=== PATIENT | female | born 1990 | race Caucasian/White ===

== ENCOUNTER → 2021-02-12 07:54 | Outpatient (CLI) | payer OTHER, SELFPAY ==
--- NOTE | 2021-02-12 07:57 | DI.US.S_ITS ---
PROCEDURE: US OB <= 14 WEEKS FETUS INDICATIONS: DATING OUTSIDE/PRIOR DATING DATA: Last menstrual period (LMP): Unknown. LMP-based estimated date of delivery (KATHY): Unknown. First dating scan (date and location): 02/13/2020. Estimated date of delivery (KATHY) from first dating scan: 09/19/2021. TECHNIQUE: Real-time scanning was performed of the fetus and maternal pelvic organs, with image documentation. Endovaginal scanning was also performed to better visualize the fetus and maternal ovaries. COMPARISON: None. FINDINGS: Embryo: Single intrauterine gestational sac containing pole and yolk sac P. pole measures 2.1 cm corresponding with an 8 week 5 day gestation. No perigestational bleed. Heart rate: 171 Measurement variability in dating: +/- 4 weeks by LMP, +/- 7 days by mean sac diameter (use before 6 weeks gestation if crown-rump length not able to be measured), +/- 5 days by crown-rump length (up to 8 weeks 6 days gestation), +/- 7 days by crown-rump length (up to 13 weeks 6 days gestation). Maternal organs: Both ovaries have appropriate vascularity without torsion. 1.5 cm corpus luteum cyst noted on the right. IMPRESSION: Single live intrauterine corresponds with a 8 week 5 day gestation Approved by: Jose F Xiong M.D. on 02/12/2021 at 10:19
== END ==
PROVIDERS: Referring Provider Specialist; Visit Provider Specialist
DX: Z36.87 Encounter for antenatal screening for uncertain dates (principal); O99.281 Endocrine, nutritional and metabolic diseases complicating pregnancy, first trimester; E03.9 Hypothyroidism, unspecified; Z3A.08 8 weeks gestation of pregnancy
CPT/HCPCS: 76801; 76817

== ENCOUNTER → 2021-02-26 17:16 | Outpatient (CLI) | payer OTHER, SELFPAY ==
[2021-02-26 17:47] LABS: Appearance Urine UA CLEAR; Bilirubin Urine UA NEGATIVE (NEGATIVE); Color Urine UA YELLOW; Glucose Urine UA NEGATIVE (Negative); Ketones Urine UA NEGATIVE (NEGATIVE); Leukocyte Esterase Urine UA NEGATIVE (NEGATIVE); Nitrite Urine UA NEGATIVE (Negative); Occult Blood Urine UA NEGATIVE (Negative); Protein Urine UA NEGATIVE (Negative); Urobilinogen Urine UA 0.2 E.U./dL (0.2)
[2021-02-26 17:50] LABS: Add Manual Diff / Slide Review NO; Basophils Absolute Auto 0 /uL (0-100); Basophils Percent Auto 0.5 % (0-2); Eosinophils Absolute Auto 100 /uL (0-450); Eosinophils Percent Auto 0.8 % (2-4); Hematocrit 35.2 % (36-46); Hemoglobin 12.1 g/dL (12.0-16.0); Lymphocytes Absolute Auto 1900 /uL (1100-4500); Lymphocytes Percent Auto 27.2 % (25-40); Mean Corpuscular HGB Conc 34.4 % (30-36); Mean Corpuscular Hemoglobin 32.2 PG (26-34); Mean Corpuscular Volume 93.5 fL (80-100); Monocytes Absolute Auto 500 /uL (0-900); Monocytes Percent Auto 7.4 % (3-14); Neutrophils Absolute Auto 4500 /uL (1500-7000); Neutrophils Percent Auto 64.1 % (50-75); Platelet Count 224 X10^3/uL (150-400); Red Blood Cell Count 3.77 X10^6/uL (4.0-5.2); Red Cell Distribution Width 13.1 % (11.6-14.8)
[2021-02-26 18:24] LABS: Free T4, Direct Thyroxine 1.01 ng/dL (0.78-2.19)
[2021-02-26 18:38] LABS: Thyroid Stimulating Hormone 3.12 uIU/mL (0.47-4.68)
[2021-02-27 06:40] LABS: RPR Screen Non Reactive (Non Reactive)
[2021-02-27 08:10] LABS: Varicella IgG Antibody 975 index (Immune >165)
[2021-02-27 16:19] LABS: Hepatitis B Surface Antigen NEGATIVE s/c (NEGATIVE)
[2021-02-27 16:34] LABS: HIV 1 & 2 Ab/Ag 4th Gen Combo NEGATIVE (NEGATIVE); Hep C Virus Ab w/Reflex Quant NEGATIVE s/c (NEGATIVE)
[2021-03-08 13:42] LABS: Rubella Antibody IgG 14.5 IU/mL (>15)
== END ==
PROVIDERS: Referring Provider Specialist; Visit Provider Specialist
DX: Z34.81 Encounter for supervision of other normal pregnancy, first trimester (principal); E03.9 Hypothyroidism, unspecified
CPT/HCPCS: 36415; 80055; 81003; 84439; 84443; 86787; 86803; 86850; 86900; 86901; 87086; 87389

== ENCOUNTER 2021-03-14 16:36 | Outpatient (CLI) | payer OTHER, SELFPAY ==
[2021-03-14] MEDS: LACTATED RINGERS 1,000 ML 1000 ML IV (17:18)
[2021-03-14] MEDS: ONDANSETRON 4 MG/2 ML INJ IV (17:20)
[2021-03-14 18:47] VITALS: BP 116/74; PULSE 64; RESP 20; TEMP 36.8
== END 2021-03-14 18:40 | disposition home or self-care (01) ==
LOC: OB 03-19 07:11
PROVIDERS: Referring Provider Specialist; Visit Provider Specialist
DX: O21.0 Mild hyperemesis gravidarum (principal); Z3A.13 13 weeks gestation of pregnancy
CPT/HCPCS: 59050; 96360; G0378; G0379; J2405

== ENCOUNTER → 2021-03-26 14:50 | Outpatient (CLI) | payer OTHER, SELFPAY ==
[2021-03-26 20:38] LABS: Urine N gonorrhoeae NOT DETECTED
[2021-03-26 20:42] LABS: Urine Chlamydia NOT DETECTED
== END ==
PROVIDERS: Visit Provider Specialist
DX: Z34.82 Encounter for supervision of other normal pregnancy, second trimester (principal); Z3A.14 14 weeks gestation of pregnancy
CPT/HCPCS: 87491; 87591

== ENCOUNTER → 2021-04-22 13:45 | Outpatient (CLI) | payer OTHER, SELFPAY ==
[2021-04-22 16:15] LABS: Thyroid Stimulating Hormone 1.87 uIU/mL (0.47-4.68)
[2021-04-26 20:22] LABS: AFP, Serum 46.1 ng/mL (.); Estriol, Free 1.73 ng/mL (.); Inhibin A, Dimeric 191.56 pg/mL (.); Inhibin A, MoM 1.23 (.); Maternal Ethnicity Caucasian (.); Maternal Weight 155 lbs (.); Number of Fetuses No (.); OSBR Risk 1 IN 10000 (.); Results Report (.); Test Results *Screen Negative* (.); hCG, MoM 0.82 (.); hCG, Serum 23206 mIU/mL (.)
== END ==
PROVIDERS: Referring Provider Specialist; Visit Provider Specialist
DX: Z34.82 Encounter for supervision of other normal pregnancy, second trimester (principal); Z3A.18 18 weeks gestation of pregnancy; E03.9 Hypothyroidism, unspecified
CPT/HCPCS: 36415; 82105; 82677; 84443; 84702; 86336

== ENCOUNTER → 2021-05-07 12:55 | Outpatient (CLI) | payer OTHER, SELFPAY ==
--- NOTE | 2021-05-07 12:55 | DI.US.S_ITS ---
PROCEDURE: US OB >= 14 WEEKS FETUS INDICATIONS: ANATOMY OUTSIDE/PRIOR DATING DATA: Last menstrual period (LMP): Unknown. LMP-based estimated date of delivery (KATHY): Unknown. First dating scan (date and location): 02/12/2021. Estimated date of delivery (KATHY) from first dating scan: 09/19/2021. The calculations are made using the ultrasound KATHY of 09/19/2021. TECHNIQUE: Real-time scanning was performed of the fetus, with image documentation and biometric measurements. Endovaginal scanning: Not performed COMPARISON: [facility], , US OB >= 14 WEEKS FETUS, 04/22/2021, 13:36. FINDINGS: General: A single living intrauterine gestation is present. Presentation: Breech. Placenta: Placental position is posterior , without previa. There is superior placental cord insertion, approximately 1.2-1.7 cm from the placental edge. Amniotic fluid index: 14.4 cm, normal range is 5-24 cm. heart rate: 153 beats per minute. Maternal cervical canal: 3.9 cm long. Normal lower limit is 2.5 cm. biometrics: Biparietal diameter: 4.8 cm, 20 weeks 4 days Head circumference: 18.2 cm, 20 weeks 4 days Abdominal circumference: 16.8 cm, 21 weeks 6 days Femur length: 3.3 cm, 20 weeks 2 days Clinically estimated gestational age: 20 weeks 5 days Composite gestational age from present scan: 20 weeks 6 days Estimated weight and percentile: 397 g, 65th percentile Anatomic survey: Neuro: Ventricles are non-dilated at less than 10 mm. Cisterna magna is normal at 3-11 mm. Cerebellum is normal in size and morphology. Nuchal skin fold: Normal at less than 6 mm between 14-21 weeks gestational age. Face: Nose and lips, facial profile are normal. Spine: No evidence for spina bifida. Sacral spine not well seen. Heart: 4-chambered heart is present, with normal ventricular outflow tracts. Diaphragm: Diaphragm is intact. Stomach: Left-sided stomach is present. Kidneys: No hydronephrosis. Normal is less than 5 mm in 2nd trimester, less than 7 mm in 3rd trimester. Cord: 3-vessel cord has orthotopic insertion. Bladder: Normal in size. Extremities: All 4 extremities identified. IMPRESSION: 1. Living 2nd trimester uterine . Ultrasound age is 1 day greater than clinical age based on initial ultrasound 2. Sacral spine not well seen. Anatomical survey otherwise unremarkable. Comment: Consider return for limited imaging of the sacral spine. We strive to produce accurate, complete, and clear reports of imaging services. To assist us in improving patient care, this report was composed using standard report templates and voice recognition software. Therefore, it may contain abnormal punctuation, insertions and/or omissions. Occasional wrong-word or sound-alike substitutions may occur. Though we review the report and make efforts to correct it, we do recommend that the report be read carefully in proper context to recognize any text inaccuracies. Dictated by: Alessandro Modi M.D. on 05/07/2021 at 16:24 Approved by: Alessandro Modi M.D. on 05/07/2021 at 16:28
== END ==
PROVIDERS: Referring Provider Specialist; Visit Provider Specialist
DX: Z34.82 Encounter for supervision of other normal pregnancy, second trimester (principal); Z3A.20 20 weeks gestation of pregnancy
CPT/HCPCS: 76811

== ENCOUNTER → 2021-06-13 12:19 | Outpatient (CLI) | payer OTHER, SELFPAY ==
[2021-06-13 15:26] LABS: GTT (PREG) 1 Hour PP 50gm Dose 82 mg/dL (76-139); Hematocrit 31.6 % (36-46)
[2021-06-13 16:05] LABS: Free T4, Direct Thyroxine 0.77 ng/dL (0.78-2.19)
[2021-06-13 16:19] LABS: Thyroid Stimulating Hormone 1.22 uIU/mL (0.47-4.68)
== END ==
PROVIDERS: Referring Provider Specialist; Visit Provider Specialist
DX: E03.9 Hypothyroidism, unspecified; O99.280 Endocrine, nutritional and metabolic diseases complicating pregnancy, unspecified trimester; O26.899 Other specified pregnancy related conditions, unspecified trimester; Z67.91 Unspecified blood type, Rh negative
CPT/HCPCS: 36415; 82950; 84439; 84443; 85014; 85018; 86850

== ENCOUNTER → 2021-08-29 13:53 | Outpatient (CLI) | payer OTHER, SELFPAY ==
[2021-08-29 15:20] LABS: Free T4, Direct Thyroxine 0.67 ng/dL (0.78-2.19)
[2021-08-29 15:34] LABS: Thyroid Stimulating Hormone 0.674 uIU/mL (0.47-4.68)
[2021-08-30 15:18] LABS: Strep Grp B PCR NEG for Grp B Strep
== END ==
PROVIDERS: Referring Provider Specialist; Visit Provider Specialist
DX: E03.9 Hypothyroidism, unspecified (principal); Z3A.36 36 weeks gestation of pregnancy
CPT/HCPCS: 36415; 84439; 84443; 87653

== ENCOUNTER 2021-09-15 05:31 | Inpatient (IN) | payer OTHER, SELFPAY ==
[2021-09-15] MEDS: LACTATED RINGERS 1,000 ML 100 ML IV ×2 (06:00→11:34)
[2021-09-15 06:45] VITALS: BP 123/68
[2021-09-15 07:20] LABS: Add Manual Diff / Slide Review NO; Basophils Absolute Auto 0 /uL (0-100); Basophils Percent Auto 0.2 % (0-2); Eosinophils Absolute Auto 100 /uL (0-450); Eosinophils Percent Auto 0.9 % (2-4); Hematocrit 30.4 % (36-46); Hemoglobin 10.7 g/dL (12.0-16.0); Lymphocytes Absolute Auto 1600 /uL (1100-4500); Lymphocytes Percent Auto 24.2 % (25-40); Mean Corpuscular HGB Conc 35.1 % (30-36); Mean Corpuscular Hemoglobin 34.9 PG (26-34); Mean Corpuscular Volume 99.5 fL (80-100); Monocytes Absolute Auto 600 /uL (0-900); Monocytes Percent Auto 9.1 % (3-14); Neutrophils Absolute Auto 4300 /uL (1500-7000); Neutrophils Percent Auto 65.6 % (50-75); Platelet Count 146 X10^3/uL (150-400); Red Blood Cell Count 3.06 X10^6/uL (4.0-5.2); Red Cell Distribution Width 12.3 % (11.6-14.8); White Blood Cell Count 6.5 X10^3/uL (4.5-11.0)
--- NOTE | 2021-09-15 07:30 | PM.PREOP ---
Pre-operative Note COVID-19 COVID-19 status: Result pending Result date/Date tested (Pos, Neg/Pending): 09/15/21 Criteria for continued procedure: Non-surgical alternatives not available or appropriate per current SOC Interval Note History & Physical reviewed/Exam performed by Physician: Yes Changes to H&P: No
--- NOTE | 2021-09-15 07:31 | PM.OBHP.1 ---
OB HPI Date/Time Date of admission: 09/15/21 Date Patient Seen: 09/15/21 Time Patient Seen: 07:31 History of Present Condition Chief complaint: REPEAT : 3 Para: 1 Estimated Date of Delivery: 09/22/21 Narrative: Janelle Gross is a 30 year old female admitted for repeat section at 39 weeks Indications Operative indications ( section): previous uterine surgery History of Present care: good care, initiated at week # (10), number of visits (11) and pounds weight gain (56) Dating criteria: LMP confirmed by 1st trimester US Ultrasounds: normal mid trimester US Obstetrical complications: none Medical complications: none Preadmission Labs Blood type: A (-) negative -: Antibody screen: negative, GBS status: negative, HBsAG: negative, HIV: negative and RPR/VDLR: negative -: Chlamydia screen: not detected and Gonorrhea screen: not detected -: Rubella: not immune and Varicella: immune HCAB: negative Quad screen: Normal 1 hr GTT: 82 Prior (ies) History: 04/22/2019 40 week gestation 8 lb 14 oz male by section Evaluation Evaluation Baseline heart rate: 125 Variability: Moderate (11-25) monitor accelerations: Present Monitor Decelerations: Absent Category of Tracing: Reactive Status: Category l PFSH Medical History (Updated 09/05/21 @ 13:48 by Rian Cash MD) Abnormal Pap smear of cervix (~2015) Acne Anxiety (~2015) Chronic eczema Depression (~2015) Eczema History of pneumonia as a child Hypothyroidism (~2017) Migraine (~2020) Thyroid nodule (~2016) Surgical History (Updated 09/05/21 @ 13:48 by Rian Cash MD) History of section (~2018) History of removal of skin mole History of tonsillectomy and adenoidectomy (~2012) Outing teeth extracted (~2016) Family History (Updated 02/25/21 @ 21:33 by Veronika Veliz) Mother Scoliosis History of HPV infection H/O total hysterectomy with removal of both tubes and ovaries Arthritis Father No problems noted. Grandmother No problems noted. Grandfather Hypertension Hyperlipidemia Anxiety Skin cancer Grandmother Leukemia Cancer Grandfather Unknown family medical history Social History marital status: number of children: 1 household members: spouse and children lives independently: Yes caregiver/support person: No pets and animals: Yes (2 dogs : safe/aware. ) education level: college ([employer]. ) occupational status: unemployed current occupational exposures/hazards: No pat/mosque: Rastafarian special pat needs: No seatbelt use: always do you feel safe at home: Yes Smoking Status: Never smoker second hand exposure: No alcohol intake: former (Pre-: very rare. ) substance use type: does not use during the past year weight has: remained stable well-balanced diet: about half the time daily servings fruits/ve-4 caffeine: Yes (Coffee some days; aware of limit.) Type(s) of exercise: regular exercise ('calisthenics' 3-4 days/week prior to . Now not feeling great: 1x/week. ) and normal ROM and activity frequency: 1-2 times per week Meds Home Medications and Allergies Home Medications Medication Instructions Recorded Confirmed Type cetirizine 10 mg tablet (Zyrtec) 10 mg PO DAILY PRN 02/19/21 09/12/21 History docusate sodium 100 mg capsule 100 mg PO DAILY 02/19/21 09/12/21 History (Colace) prenat.vits,jeremias,[id number] 1 tab PO DAILY 02/19/21 09/12/21 History metoclopramide HCl 10 mg tablet 10 mg PO Q6H PRN #20 tab 03/03/21 09/12/21 Rx (Reglan) levothyroxine 150 mcg tablet See Rx Instructions .ROUTE 09/08/21 09/12/21 Rx .COMPLEX #90 tab Allergies Allergy/AdvReac Type Severity Reaction Status Date / Time No Known Drug Allergies Allergy Verified 09/12/21 15:19 Review of Systems Review of Systems Narrative: patient denies headaches, scotomata, epigastric pain. Good movement. No leakage of fluid. No vaginal bleeding no abdominal pain. OB Exam Narrative Exam Narrative: Blood pressure 123/68, pulse 75, temperature 36.1? HEENT within normal limits. Heart is regular rate and rhythm no S3-S4 murmurs. Lungs are clear to auscultation percussion. Abdomen is gravid. Fetus is vertex. Extremities without edema and nontender. Objective Labs Result Diagrams: 09/15/21 07:13 Labs: Laboratory Results - last 24 hr 09/15/21 07:13 WBC 6.5 RBC 3.06 L Hgb 10.7 L Hct 30.4 L MCV 99.5 MCH 34.9 H MCHC 35.1 RDW 12.3 Plt Count 146 L Neut % (Auto) 65.6 Lymph % (Auto) 24.2 L [place] % (Auto) 9.1 Eos % (Auto) 0.9 L Baso % (Auto) 0.2 Neut # (Auto) 4300 Lymph # (Auto) 1600 [place] # (Auto) 600 Eos # (Auto) 100 Baso # (Auto) 0 Assessment and Plan Assessment and Plan Assessment and Plan narrative: 39 week gestation with prior section for repeat low-transverse section.
[2021-09-15 07:32] LABS: COVID19 -Nasal RAPID Negative (Negative)
[2021-09-15] MEDS: CEFAZOLIN 2 GM/20 ML SYRINGE IV (08:05)
--- NOTE | 2021-09-15 08:21 | SUR.OPER ---
Supine on Padded OR bed, head on pillow, safety belt at thigh, arms secured on padded arm boards at <90 degrees abduction. Bump under right buttock. Legs uncrossed with pillow under knees, gel pad to heels, tape over blanket to lower legs. Directed and approved by surgeon
--- NOTE | 2021-09-15 08:33 | SUR.OPER ---
Viable baby girl delivered at 0828. Placenta delivered at 0831. 9/9. Placenta and cord blood sent to OB with OB RNs and baby.
[2021-09-15 09:17] VITALS: BP 114/66; PULSE 65; RESP 16; TEMP 36; O2SAT 98
[2021-09-15 09:22] VITALS: BP 110/60; PULSE 69; RESP 16; O2SAT 100
--- NOTE | 2021-09-15 09:23 | PM.OBCS.1 ---
Operative Date/Time/Diagnoses Date of procedure: 09/15/21 Time of procedure: 09:23 Pre-op diagnosis: 39 week gestation with prior section for repeat section Post-op diagnosis: same Procedure & Clinicians Procedure: Repeat low-transverse section with extensive lysis of adhesions Same procedure as scheduled: Yes Indications: 39 week gestation with prior section Surgeon: Lissette Castañeda Shearing Machine Operator: Zoey Valdez Anesthesia Type: Spinal Operative Notes Findings: Normal tubes and ovaries. Extensive adhesions of the uterus to the anterior abdominal wall, adhesions of the omentum to the anterior abdominal wall. Closure Type: primary Specimen(s): cord blood Intraoperative meds administered: Duramorph, Ketorolac and Pitocin Applied: Catheter (Gross) Estimated Blood Loss (mL): 450 Blood products transfused: none Procedure in detail: The patient was brought to the operating room where she underwent for anesthesia. She was placed in a supine position with a left lateral tilt. A Gross catheter was placed. Pulsatile stockings were placed and functional throughout the case. 2 g of Ancef were given IV prior to the incision. Warming was in place, Ira Hugger on the lower abdomen. The patient was prepped and draped in usual sterile fashion. A low transverse incision was made with a scalpel and the incision was carried down to the fascial layer which was incised transversely with scissors. The instructional assistant did her side of the incision. The midline attachments are superiorly and inferiorly. Some bleeding was controlled Bovie. The rectus muscles were in the midline and the peritoneal incision was made with no damage to internal structures. The peritoneum was incised and superiorly and inferiorly. The incision was stretched with the surgeon and instructional assistant placing traction. Bladder blade was placed and a bladder flap was developed after releasing an adhesion of the bladder flap high on the uterus. The bladder held away from the lower uterine segment. Attempt to widen the incision by Bovie cauterization of an area of the uterus attached to the anterior abdominal wall. Incision was made in the uterus with the scalpel and the incision was extended with stretching. The head was elevated out of the abdomen and with fundal pressure by the instructional assistant and vacuum assistance the baby was delivered. The infant was bulb suctioned for clear fluid and handed off to the warmer. Cord blood was collected. The placenta delivered spontaneously with traction. The uterus was cleaned with clean laps. The uterine incision was closed in 2 layers of 0 chromic suture the first a running locking layer the second an imbricating layer. The instructional assistant was helping to expose the incision. Bleeding in the left edge just the incision was controlled with [id number] suture around the uterine artery. The area where the uterus was detached from the anterior abdominal wall was bleeding and bleeding was controlled with [id number] sutures of 0 chromic suture. Bladder peritoneum was not easily identified so not repaired. The gutters were cleaned of any remaining fluids and ovaries and tubes were observed to be normal. Adequate hemostasis was noted. The perineum was closed with 2-0 Vicryl suture. The fascia layer was closed with 0 Vicryl suture with 2 stitches. The instructional assistant repairing half the incision with helping to retract and expose the incision for the other half. The incision was irrigated and adequate hemostasis noted. The incision was closed with interrupted 3-0 Vicryl sutures and then a subcuticular stitch of 4-0 Vicryl suture. Steri-Strips were placed. The uterus was massaged to remove any clots. The patient went to recovery room in good condition. Counts of instruments and sponges were correct. Dr. Valdez was present throughout the case to assist with retraction, fundal pressure to deliver the infant, and suturing half the fascia. Complications: none [place] Baby 1: Gender: Female Presentation: vertex Position: Left Occiput Anterior Placental Delivery Description: Expressed Cord Vessel Description: 3 Vessels score (1 min): 8 score (5 min): 9 weight: 8 lb 7 oz Post-operative Condition: stable Disposition: other ( Center) Aftercare: routine postop
[2021-09-15 09:27] VITALS: BP 110/61; PULSE 64; RESP 16; O2SAT 100
[2021-09-15 09:40] VITALS: BP 110/70; PULSE 88; RESP 16; TEMP 36.8; O2SAT 100
[2021-09-15] MEDS: METOCLOPRAMIDE 10 MG/2 ML INJ 5 MG IV (12:00)
[2021-09-15] MEDS: KETOROLAC 30 MG/ML VIAL IV ×2 (15:01→21:15)
[2021-09-15] MEDS: ONDANSETRON 4 MG/2 ML INJ IV (15:06)
--- NOTE | 2021-09-15 16:14 | P.PNOB_ITS ---
Subjective - OB Subjective Patient comments: pain well controlled and other ( Nausea with emesis with change of position no other symptoms) [place] baby status: doing well and nursing well feeding status: exclusively breast feeding Date Patient Seen: 09/15/21 Time Patient Seen: 16:15 Exam Vital Signs (past 8 hours): - 09/15/21 09:17 09/15/21 09:22 09/15/21 09:27 Temperature 96.8 F L Pulse Rate 65 69 64 Respiratory Rate 16 16 16 Blood Pressure 114/66 110/60 110/61 Pulse Oximetry 98 100 100 09/15/21 09:40 Temperature 98.2 F Pulse Rate 88 Respiratory Rate 16 Blood Pressure 110/70 Pulse Oximetry 100 Oxygen Delivery Method Room Air Narrative Exam Narrative: Abdomen is soft, nontender. Uterus is firm, at U, nontender. Mild lochia. Extremities without edema and nontender. Objective Labs Result Diagrams: 09/15/21 07:13 Labs: Laboratory Results - last 24 hr 09/15/21 09/15/21 09/15/21 06:00 07:13 07:13 WBC 6.5 RBC 3.06 L Hgb 10.7 L Hct 30.4 L MCV 99.5 MCH 34.9 H MCHC 35.1 RDW 12.3 Plt Count 146 L Neut % (Auto) 65.6 Lymph % (Auto) 24.2 L [place] % (Auto) 9.1 Eos % (Auto) 0.9 L Baso % (Auto) 0.2 Neut # (Auto) 4300 Lymph # (Auto) 1600 [place] # (Auto) 600 Eos # (Auto) 100 Baso # (Auto) 0 SARS-CoV-2 (PCR) Negative Blood Type A Negative Antibody Screen Positive Antibody Identification Anti-D Assessment & Plan Plan day: 0 plan OB: routine postop care Comments: Will try a scopolamine patch for her position change emesis, she does have a history of car sickness. Time Spent With Patient Time: Total time spent is greater than 50% in coordination of care (as documented) at patient's floor/unit and/or counseling patient: Time with patient: less than 15 minutes
[2021-09-15] MEDS: SCOPOLAMINE 1 PATCH TOP (16:29)
[2021-09-15] MEDS: diphenhydrAMINE 50 MG/ML VIAL 25 MG IV (21:15)
[2021-09-16] MEDS: KETOROLAC 30 MG/ML VIAL IV (02:46)
[2021-09-16 05:10] LABS: Add Manual Diff / Slide Review NO; Basophils Absolute Auto 100 /uL (0-100); Basophils Percent Auto 0.6 % (0-2); Eosinophils Absolute Auto 0 /uL (0-450); Eosinophils Percent Auto 0.3 % (2-4); Hematocrit 27.2 % (36-46); Hemoglobin 9.5 g/dL (12.0-16.0); Lymphocytes Absolute Auto 1300 /uL (1100-4500); Lymphocytes Percent Auto 13.7 % (25-40); Mean Corpuscular HGB Conc 34.7 % (30-36); Mean Corpuscular Hemoglobin 34.7 PG (26-34); Mean Corpuscular Volume 99.8 fL (80-100); Monocytes Absolute Auto 700 /uL (0-900); Monocytes Percent Auto 7.2 % (3-14); Neutrophils Absolute Auto 7100 /uL (1500-7000); Neutrophils Percent Auto 78.2 % (50-75); Platelet Count 135 X10^3/uL (150-400); Red Blood Cell Count 2.73 X10^6/uL (4.0-5.2); Red Cell Distribution Width 12.4 % (11.6-14.8); White Blood Cell Count 9.1 X10^3/uL (4.5-11.0)
[2021-09-16] MEDS: ACETAMINOPHEN 325 MG TABLET 650 MG PO ×2 (05:34→11:37)
[2021-09-16] MEDS: LEVOTHYROXINE 150 MCG TABLET PO (05:56)
[2021-09-16] MEDS: IBUPROFEN 600 MG TABLET PO ×2 (08:38→14:05)
[2021-09-16] MEDS: DOCUSATE 100 MG CAPSULE 200 MG PO (08:38)
--- NOTE | 2021-09-16 08:57 | P.DS_ITS ---
Discharge Providers Provider Date of admission: 09/15/21 05:31 Discharge Date: 09/16/21 Primary care physician: Yulissa Rachel MD Consults: 09/15/21 10:10 Consult to Evaporator Helper Routine Comment: Discharge provider: Lissette Castañeda MD Summary Hospital Course Date Patient Seen: 09/16/21 Time Patient Seen: 08:59 Diagnoses: repeat low-transverse section Hospital Course: Patient was admitted for repeat low-transverse section. She is urinating and ambulating well. She is passing gas. She is breast-feeding without difficulty. Pain is under control. No headaches, scotomata, epigastric pain. Peripartum Data Delivery Method: Section ( Repeat) Procedures: repeat low-transverse section complications: none [place] 1: Gender: Female Disposition of : home Discharge Diagnosis (1) Status post repeat low transverse section: Status: Acute (2) Acute on chronic blood loss anemia: Status: Acute Status at Discharge Cognitive/behavioral status at discharge: oriented Functional status at discharge: independent ambulation Overall status at discharge: patient is progressing back to baseline Time Spent with Patient Time attestation: Total time spent providing and/or coordinating discharge services: Time spent: Less than 30 minutes Objective Labs Result Diagrams: 09/16/21 04:52 Labs: Laboratory Results - last 24 hr 09/15/21 09/16/21 07:13 04:52 WBC 9.1 RBC 2.73 L Hgb 9.5 L Hct 27.2 L MCV 99.8 MCH 34.7 H MCHC 34.7 RDW 12.4 Plt Count 135 L Neut % (Auto) 78.2 H Lymph % (Auto) 13.7 L [place] % (Auto) 7.2 Eos % (Auto) 0.3 L Baso % (Auto) 0.6 Neut # (Auto) 7100 H Lymph # (Auto) 1300 [place] # (Auto) 700 Eos # (Auto) 0 Baso # (Auto) 100 Blood Type A Negative Antibody Screen Positive Antibody Identification Anti-D Exam Vital Signs (past 8 hours): blood pressure 113/68, pulse 69, temperature 97.4? Oxygen Delivery Method Room Air Narrative Exam Narrative: Uterus is firm, at U, nontender. Abdomen is soft, nontender. Dressing is clean, dry, intact. Mild lochia. Extremities without edema and nontender. Both baby and mother Rh negative. So no RhoGAM is needed. She will receive a rubella vaccine prior to discharge. She received Tdap in the 3rd trimester. Discharge Plan Discharge Plan Patient Disposition: Home Discharge orders & Medications Prescriptions: New docusate sodium 100 mg Capsule 200 mg PO DAILY Qty: 20 0RF ibuprofen 600 mg Tablet 600 mg PO Q6H PRN (Reason: Fever/Mild Pain (1-3)) Qty: 30 0RF oxycodone 5 mg Tablet 5 mg PO Q4H PRN (Reason: Pain, Moderate (4-6)) Qty: 20 0RF ferrous gluconate 324 mg (37.5 mg iron) tablet 324 mg PO DAILY Qty: 30 0RF Continued levothyroxine 150 mcg tablet See Rx Instructions .ROUTE .COMPLEX Qty: 90 0RF Dose Instruction: TAKE 1 TABLET BY MOUTH DAILY Rx Instructions: TAKE 1 TABLET BY MOUTH DAILY prenat.vits,jeremias,[id number] Tablet 1 tab PO DAILY 0RF cetirizine [Zyrtec] 10 mg tablet 10 mg PO DAILY PRN (Reason: Allergy Symptoms) 0RF Follow up/Referrals: Yulissa Rachel MD [Primary Care Provider] - Lissette Castañeda MD [Physician] - 1 Week ( Aquacel removal Aquacel r) Diet/Activity/Treatments Diet: Regular Activity: nothing in vagina or lifting over 20 lb for 6 weeks Skin/Wound/Dressing Care Report to your healthcare provider any signs of infection, such as:: chills, fever and increased pain Dressing: leave dressing on until 1 week postop appointment Discharge Data Primary Care Provider: Yulissa Rachel
[2021-09-16 09:51] VITALS: BP 117/74; PULSE 73; RESP 16; TEMP 36.5
[2021-09-16] MEDS: MEASLES,MUMPS,RUBELLA VACC/PF 0.5 ML VIAL SUBCUT (13:31)
[2021-09-16] MEDS: OXYCODONE IR 5 MG TABLET PO (14:06)
== END 2021-09-16 14:16 | disposition home or self-care (01) | DRG 787 ==
PROVIDERS: Admitting Provider Specialist; PCP Student in an Organized Health Care Education/Training Program; Referring Provider Specialist; Visit Provider Specialist
PROC: 10D00Z1 Extraction of Products of Conception, Low, Open Approach (ICD-10-PCS; CPT 59514; principal; 2021-09-15 07:45)
DX: O34.211 Maternal care for low transverse scar from previous cesarean delivery (principal); D62 Acute posthemorrhagic anemia; Z3A.39 39 weeks gestation of pregnancy; Z37.0 Single live birth; K66.0 Peritoneal adhesions (postprocedural) (postinfection); O99.284 Endocrine, nutritional and metabolic diseases complicating childbirth; E03.9 Hypothyroidism, unspecified; O99.02 Anemia complicating childbirth; Z20.822 Contact with and (suspected) exposure to COVID-19
CPT/HCPCS: 36415; 59050; 59510; 59514; 85025; 86850; 86870; 86900; 86901; 87635; C9803; J0690; J1100; J1200; J1885; J2274; J2405; J2590; J2765

== ENCOUNTER → 2021-10-28 14:45 | Outpatient (CLI) | payer OTHER, SELFPAY ==
[2021-10-28 17:29] LABS: Free T4, Direct Thyroxine 1.39 ng/dL (0.78-2.19)
[2021-10-28 17:45] LABS: Thyroid Stimulating Hormone < 0.015 uIU/mL (0.47-4.68)
== END ==
PROVIDERS: PCP Student in an Organized Health Care Education/Training Program; Referring Provider Obstetrics & Gynecology; Visit Provider Obstetrics & Gynecology
DX: E03.9 Hypothyroidism, unspecified (principal)
CPT/HCPCS: 36415; 84439; 84443